=== PATIENT | female | born 1975 | race Caucasian/White ===

== ENCOUNTER 2020-01-05 18:07 | Emergency (ER) | payer OTHER, SELFPAY ==
--- NOTE | ~2020-01-05 | XR_ITS ---
EXAMINATION: XR knee RT min 4V DATE: 01/05/2020 18:48 INDICATION: Right knee pain TECHNIQUE: Four views of the right knee were obtained. COMPARISON: None. FINDINGS: Alignment is normal. Enthesophytes project from the superior and inferior pole of the bill la. There is apparent interruption of the inferior enthesophyte seen on the lateral view. Joint space s are normal with no erosions. No joint effusion/synovitis. Soft tissues are unremarkable. IMPRESSION: 1. Disruption of the inferior enthesophyte projecting from the patella which could reflect acute inju ry. Reviewed, dictated and finalized at location A. IMPRESSION: 1. Disruption of the inferior enthesophyte projecting from the patella which co uld reflect acute injury.
[2020-01-05 18:17] VITALS: BP 157/88; PULSE 83; RESP 18; TEMP 37.2; O2SAT 96
--- NOTE | 2020-01-05 18:19 | ED.LOWEXIN ---
HPI - Extremity Injury (Lower) General Chief Complaint: Extremity Injury, Lower Stated Complaint: R knee pain Time Seen by Provider: 01/05/20 18:09 Source: patient Mode of arrival: ambulatory Limitations: no limitations History of Present Illness HPI Narrative: This is a 44 year old female that presents to the ER for right knee pain after an injury 5 days ago. Reports she slipped getting out of the shower. Reports falling onto her right knee and hitting her nose. Denies loss of consciousness. Reports since she has had increasing right knee pain. Also reports nasal pain. Denies vision changes, vomiting, headache, decreased ROM, numbness or weakness. Review of Systems Review of Systems: Narrative: CONSTITUTIONAL: Denies fever EYES: Denies visual changes GASTROINTESTINAL: Denies vomiting MUSCULOSKELETAL: Reports joint pain and myalgia. Denies back pain NEUROLOGIC: Denies headache, numbness, or weakness. All systems reviewed & are unremarkable except as noted in HPI and below PMFSH Past Medical History Medical History (Updated 01/05/20 @ 19:25 by Rebeka Valdivia PA-C) History of hypertension Social History Social History (Updated 01/05/20 @ 18:22 by Rebeka Valdivia PA-C) Substance use: never Exam Narrative: Exam Narrative: GENERAL: Well-appearing, well-nourished, and in no acute distress. HEAD: Normocephalic, atraumatic. EYES: PERRLA and EOMI. ENT: Nares clear, no rhinorrhea or epistaxis. Mucous membranes moist. Oropharynx without tonsillar hypertrophy exudate or other lesions. Bilateral TMs pearly mejia non-bulging NECK: Supple. No adenopathy or masses. CHEST: Clear to auscultation. No respiratory distress. No wheezes rales or rhonchi HEART: Regular rate and rhythm. No murmur heard. Normal peripheral pulses. EXTREMITIES: Normal range of motion. No edema or obvious deformity. SKIN: Warm, dry, no rash. NEURO: No focal deficits. Alert and oriented x3. CN II-XII grossly intact. PSYCH: Normal mood and affect Course Vital Signs Vital signs: Vital Signs Temperature 98.9 F 01/05/20 18:17 Pulse Rate 83 01/05/20 18:17 Respiratory Rate 18 01/05/20 18:17 Blood Pressure 157/88 H 01/05/20 18:17 Pulse Oximetry 96 05/20/20 18:17 Temperature 98.9 F 01/05/20 18:17 Pulse Rate 83 01/05/20 18:17 Respiratory Rate 18 01/05/20 18:17 Blood Pressure 157/88 H 01/05/20 18:17 Pulse Oximetry 96 01/05/20 18:17 MDM - Extremity Injury (Lower) MDM Narrative Medical decision making narrative: Patient presents the emergency department for right knee pain after an injury 5 days ago. Also reports nasal pain. Reports she did hit her head, denies loss of consciousness. She is neurologically intact. Refused CAT scan of the facial bones. Right knee x-ray shows disruption of the inferior at this a fight projecting from the patella which could reflect acute injury. Patient was placed in a knee immobilizer and given crutches. She will be given orthopedics for follow-up. Patient is stable felt appropriate for further outpatient evaluation. She is given warnings to return to the ER Imaging Data Radiologist's impression: ITS Impressions Knee X-Ray 01/05/20 18:56 IMPRESSION: 1. Disruption of the inferior enthesophyte projecting from the patella which could reflect acute injury. Critical Care Time Critical Care Time Critical Care Time: No Discharge Plan Discharge Clinical Impression: Acute pain of right knee Patient Disposition: Home, Self-Care Condition: Stable Instructions: Knee Sprain (ED) Additional Instructions: Return to the emergency department if you experience fever, redness and swelling of your leg, or any other symptoms that are concerning to you Wear knee immobilizer and use crutches. No weight on the affected leg. Ice and elevate extremity. [id number] pain medication as needed Follow up with orthopedics for further care Follow-up/Referrals: PHYSICIAN NOT ON
--- NOTE | 2020-01-05 19:15 | PC.NURSE ---
Assumed care of pt at this time. report from ANTONINA Quinn
[2020-01-05 19:27] VITALS: BP 150/81; PULSE 71; RESP 15; O2SAT 96
[2020-01-05 19:35] VITALS: BP 133/87; PULSE 71; RESP 19; O2SAT 97
== END 2020-01-05 19:35 | disposition home or self-care (01) ==
PROVIDERS: Emergency Provider Emergency Medicine; PCP Family Medicine
DX: M25.561 Pain in right knee (principal); I10 Essential (primary) hypertension; R93.6 Abnormal findings on diagnostic imaging of limbs
CPT/HCPCS: 73564; 99283

== ENCOUNTER 2024-03-01 09:50 | Emergency (ER) | payer SELFPAY ==
--- NOTE | ~2024-03-01 | US_ITS ---
EXAMINATION: US venous doppler LE RT DATE: 03/01/2024 12:07 INDICATION: Right lower limb pain, erythema and swelling TECHNIQUE: Grayscale ultrasound images without and with compression and Doppler ultrasound images of the right lower extremity veins were obtained. COMPARISON: None. FINDINGS: The visualized portions of right common femoral vein, profunda (deep) femoral vein, femoral vein, pop liteal vein, peroneal trunk, posterior tibial veins, peroneal veins, gastrocnemius vein and greater s aphenous vein outflow are patent. IMPRESSION: 1. No deep venous thrombosis in the right lower limb. Reviewed, dictated and finalized at location A.
[2024-03-01 10:04] VITALS: BP 134/78; PULSE 118; RESP 20; TEMP 36.4; O2SAT 96
--- NOTE | 2024-03-01 10:58 | ED.SKABFB ---
HPI - Skin/Abscess/Foreign Bdy General Chief complaint: Skin/Abscess/Foreign Body Stated complaint: LOWER EXTREMITY PAIN Time Seen by Provider: 03/01/24 10:51 Source: patient Mode of arrival: ambulatory Limitations: no limitations History of Present Illness HPI narrative: This is a 49 year old female that presents to the ER for right lower extremity pain and swelling. Ongoing since yesterday. Reports a bug bite in the area. Reports subjective fevers, myalgias. Denies chest pain or shortness of breath. Related Data Allergies Allergy/AdvReac Type Severity Reaction Status Date / Time No Known Allergies Allergy Verified 03/01/24 10:07 Review of Systems Review of Systems: CONSTITUTIONAL: Reports fever CARDIOVASCULAR: Denies chest pain RESPIRATORY: Denies dyspnea. SKIN: Reports redness and swelling All systems reviewed & are unremarkable except as noted in HPI and below PMFSH Past Medical History Medical History (Updated 03/02/24 @ 14:14 by Rebeka Valdivia PA-C) History of hypertension Social History Social History (Updated 01/05/20 @ 18:22 by Rebeka Valdivia PA-C) Substance use: never Exam Narrative: GENERAL: Well-appearing, well-nourished, and in no acute distress. HEAD: Normocephalic, atraumatic. EYES: EOMI. CHEST: Clear to auscultation. No respiratory distress. No wheezes rales or rhonchi HEART: Regular rate and rhythm. No murmur heard. Normal peripheral pulses. EXTREMITIES: Normal range of motion. Mild redness and swelling to the right lower leg with a scab present. Normal DP pulses. Normal sensation SKIN: Warm, dry, no rash. NEURO: No focal deficits. Alert and oriented x3. PSYCH: Normal mood and affect Course Course Emergency Course: Patient updated on her workup and agrees with plan of care Vital Signs Vital signs: Vital Signs Temperature 97.5 F L 03/01/24 10:04 Pulse Rate 118 H 03/01/24 10:04 Respiratory Rate 20 03/01/24 10:04 Blood Pressure 134/78 03/01/24 10:04 Pulse Oximetry 96 03/01/24 10:04 Oxygen Delivery Room Air 03/01/24 10:04 Temperature 97.5 F L 03/01/24 10:04 Pulse Rate 89 03/01/24 13:49 Respiratory Rate 16 03/01/24 13:49 Blood Pressure 121/71 03/01/24 13:49 Pulse Oximetry 98 03/01/24 13:49 Oxygen Delivery Room Air 03/01/24 10:04 MDM - Skin/Abscess/Foreign Bdy MDM Narrative Medical decision making narrative: Patient presents to the emergency department for right lower extremity redness, swelling and pain. Ongoing since yesterday. Reporting some myalgias and generalized fatigue. She is afebrile and nontoxic appearing. Mild redness and swelling to the right lower extremity. CBC with leukocytosis to 16.3. inflammatory markers are elevated. Influenza, RSV and COVID screens are negative. Right lower extremity venous Doppler without evidence of DVT. Patient was updated on her workup. Will give patient initial dose of antibiotics IV and trial outpatient therapy with further oral antibiotics. She was instructed to return at any time for any worsening of her symptoms Differential Diagnosis Differential diagnosis: Likely cellulitis and other ( viral syndrome, DVT) Lab Data Attestation: I reviewed the patient's lab results. 03/01/24 11:09 03/01/24 11:09 Labs: Lab Results 03/01/24 Range/Units 11:09 WBC 16.3 H (4.5-10.0) K/mm3 RBC 4.75 (4.2-5.4) M/mm3 Hgb 14.1 (12.0-15.0) g/dL Hct 41.5 (37.0-47.0) % MCV 87.4 (80-100) fl MCH 29.7 (26-34) pg MCHC 34.0 (32-36) g/dl RDW 13.0 (11.5-14.5) % Plt Count 235 (150-375) k/mm3 MPV 9.7 (7.4-10.4) fl Immature Gran % (Auto) 0.3 (0-0.5) % Neut % (Auto) 86.6 H (45.5-73.1) % Lymph % (Auto) 8.1 L (18.3-44.2) % [place] % (Auto) 4.7 (2.6-8.5) % Eos % (Auto) 0.0 (0-4.4) % Baso % (Auto) 0.3 (0.2-1.2) % Lymph # (Auto) 1.31 (0.9-3.2) K/mm3 [place] # (Auto) 0.8 H (0.1-0.6) K/mm3 Eos # (Auto) 0.0 (0-0.3) K/mm3 Bas
[2024-03-01 11:16] LABS: Basophils Absolute Auto 0.1 K/mm3 (0.0-0.1); Basophils Percent Auto 0.3 % (0.2-1.2); Hematocrit 41.5 % (37.0-47.0); Hemoglobin 14.1 g/dL (12.0-15.0); Immature Granulocyte Absolute 0.05 K/mm3 (0.00-0.031); Immature Granulocyte Percent A 0.3 % (0-0.5); Lymphocytes Absolute Auto 1.31 K/mm3 (0.9-3.2); Lymphocytes Percent Auto 8.1 % (18.3-44.2); Mean Corpuscular Hemoglobin 29.7 pg (26-34); Mean Corpuscular Volume 87.4 fl (80-100); Mean Platelet Volume 9.7 fl (7.4-10.4); Monocytes Absolute Auto 0.8 K/mm3 (0.1-0.6); Monocytes Percent Auto 4.7 % (2.6-8.5); Neutrophils Absolute Auto 14.1 K/mm3 (1.3-6.7); Neutrophils Percent Auto 86.6 % (45.5-73.1); Platelet Count Result 235 k/mm3 (150-375); Red Blood Count 4.75 M/mm3 (4.2-5.4); White Blood Count 16.3 K/mm3 (4.5-10.0)
[2024-03-01] MEDS: ACETAMINOPHEN 500 MG TABLET 1000 MG PO (11:34)
[2024-03-01] MEDS: ONDANSETRON HCL ODT 4 MG TABLET PO (11:35)
[2024-03-01 11:40] LABS: Anion Gap 11 mmol/L (4-12); Blood Urea Nitrogen 14 mg/dL (7-17); Carbon Dioxide 23 mmol/L (22-30); Chloride 102 mmol/L (98-107); Erythrocyte Sedimentation Rate 37 mm/hr (0-20); Estimated CRCL calculation 91 ml/min; Estimated Glomerular Filt Rate > 60; Glucose 111 mg/dL (65-110); Potassium 3.4 mmol/L (3.4-5.0); Sodium 136 mmol/L (137-145)
[2024-03-01 11:51] LABS: CRP 16.2 mg/dL (<1.0)
[2024-03-01 11:53] LABS: Influenza A QL RT-PCR Negative (Negative); Influenza B QL RT-PCR Negative (Negative); RSV RNA, RT-PCR Negative (Negative); SARS-CoV-2 RNA PCR Negative (Negative)
[2024-03-01] MEDS: ceFAZolin 1 GM/NS 50 ML 1 GM/50 ML BAG IVPB (13:18)
[2024-03-01 13:31] VITALS: BP 127/73; PULSE 84; RESP 16; O2SAT 95
[2024-03-01 13:49] VITALS: BP 121/71; PULSE 89; RESP 16; O2SAT 98
--- NOTE | 2024-03-01 14:02 | PC.NURSE ---
PT given work note.
== END 2024-03-01 14:03 | disposition home or self-care (01) ==
PROVIDERS: Emergency Provider Physician Assistant; PCP Family Medicine
DX: L03.115 Cellulitis of right lower limb (principal); Z20.822 Contact with and (suspected) exposure to COVID-19
CPT/HCPCS: 36415; 80048; 85025; 85652; 86140; 87637; 93971; 96365; 99284; A9270; J0690